=== PATIENT | female | born 1950 | race Caucasian/White ===

== ENCOUNTER 2016-05-14 10:31 | Emergency (ER) | payer OTHER ==
[2016-05-14 11:15] VITALS: BP 153/94; PULSE 79; RESP 16; O2SAT 97
--- NOTE | 2016-05-14 12:14 | UCPHY ---
H & P Time Seen by Provider: 05/14/16 11:56 Patient Type: Established HPI/ROS: This patient presents with a chief complaint of a left arm mass which she 1st noticed yesterday. She localizes it to the medial side of the upper arm on the ulnar side. It is not painful and she remembers no trauma. 1 month ago she noticed in swelling in her left axilla and was able to trace a "cord" extending from this mass into her mid forearm. At this time she did have some pain in the extremity but did not appreciate any swelling, weakness or paresthesias. Since then the pain has resolved and the cord persists but is nontender. She remembers having a blood draw all from the antecubital fossa but is unable to relate it to the above symptoms. Smoking Status: Never smoked Physical Exam: This is a well-developed well-nourished female who is in no acute distress. She is alert, lucid and has a normal mental status and gait. Examination of the left upper extremity reveals a cord from the medial mid upper arm extending into the mid flexor forearm. This is nontender and there is no swelling and skin overlying is completely normal. On the ulnar side of this cord at the elbow there is a mass which is nontender. Constitutional: Initial Vital Signs Heart Rate 79 05/14/16 11:12 Respiratory Rate 16 05/14/16 11:12 Blood Pressure 153/94 H 05/14/16 11:12 O2 Sat (%) 97 05/14/16 11:12 O2 Delivery Mode Room Air Allergies/Adverse Reactions: Penicillins Allergy (Verified 05/14/16 11:12) shellfish derived Allergy (Verified 05/14/16 11:12) Sulfa (Sulfonamide Antibiotics) Allergy (Verified 05/14/16 11:12) histamines Allergy (Uncoded 11/20/13 10:37) Home Medications: Medication Instructions Recorded Synthroid 11/20/13 Medical Decision Making Differential Diagnosis: The symptoms are consistent with a DVT of the upper extremity but since her symptoms are resolving and because the symptoms have been present for 1 month I did not feel that we needed to do the ultrasound immediately. She has an appointment with her PCP tomorrow which she is encouraged to keep. I do not have any other explanation for her symptoms but certainly do not think that this is related to an infectious cause or injury. Departure - Departure Disposition: Home, Routine, Self-Care Clinical Impression: Mass of left upper extremity Condition: Good Additional Instructions: You should follow-up with your primary care physician tomorrow or with your orthopedist. If for possible I would do an ultrasound today however I feel that this can wait until tomorrow. Referrals: Eh Pineda MD [Primary Care Provider] - As per Instructions - PQRS PQRS Measurement: Not applicable
== END 2016-05-14 12:20 | disposition home or self-care (01) ==
LOC: CED 10:31
DX: R22.32 Localized swelling, mass and lump, left upper limb (principal)
CPT/HCPCS: G0463-PO

== ENCOUNTER → 2018-03-31 | Outpatient (CLI) | payer OTHER | LOC: SUPIMAGING 11:39 | PROVIDERS: ATTEND Registered Nurse | DX: R07.81 Pleurodynia (principal) | CPT/HCPCS: 71101-PN ==

== ENCOUNTER → 2018-04-01 | Outpatient (CLI) | payer OTHER | LOC: FIMAGING 13:43 | DX: N64.59 Other signs and symptoms in breast (principal) ==

== ENCOUNTER → 2018-04-03 | Outpatient (CLI) | payer OTHER | LOC: FIMAGING 14:07 | DX: N64.4 Mastodynia (principal) ==